=== PATIENT | male | born 1945 | race Caucasian/White ===

== ENCOUNTER 2017-11-26 08:51 | Emergency (ER) | payer MEDICARE, BC | END 2017-11-26 11:22 | LOC: D.ER 08:51 | DX: S39.012A Strain of muscle, fascia and tendon of lower back, initial encounter (principal); X58.XXXA Exposure to other specified factors, initial encounter; Y93.89 Activity, other specified; Y92.89 Other specified places as the place of occurrence of the external cause; M54.32 Sciatica, left side; I48.2 Chronic atrial fibrillation ==

== ENCOUNTER → 2017-11-29 16:32 | Outpatient (CLI) | payer MEDICARE, BC | END | disposition home or self-care (01) | LOC: D.MRI 16:32 | DX: M54.16 Radiculopathy, lumbar region (principal) ==